=== PATIENT | female | born 1955 | race Caucasian/White ===

== ENCOUNTER 2019-11-09 10:58 | Emergency (ER) | payer MEDICARE, OTHER ==
--- NOTE | 2019-11-09 12:11 | CT ---
EXAM: CT brain without contrast HISTORY: Fall with head injury COMPARISON: None TECHNIQUE: Multiple contiguous axial images were obtained and a CT of the brain without contrast. FINDINGS: The brain is normal in morphology and attenuation without focal lesions or confluent areas of infarction. There is no evidence of hydrocephalus, intracranial hemorrhage, or extra-axial fluid collection. There is a small amount of soft tissue swelling in the left frontal scalp. The calvarium is unremarka ble. The visualized paranasal sinuses and mastoid air cells are well aerated. IMPRESSION: No evidence of acute intracranial abnormality
[2019-11-09] MEDS ORDERED: Acetaminophen 325 MG TAB ONE ×2 (12:54→12:55)
== END 2019-11-09 13:34 | disposition home or self-care (01) ==
LOC: ERS 10:58
DX: S00.03XA Contusion of scalp, initial encounter (principal); Z87.891 Personal history of nicotine dependence; W01.0XXA Fall on same level from slipping, tripping and stumbling without subsequent striking against object, initial encounter
CPT/HCPCS: 70450

== ENCOUNTER 2023-06-07 07:38 | Outpatient (CLI) | payer MEDICARE, OTHER ==
[2023-06-07] MEDS ORDERED: Iopamidol-370 76% 500 ML MDV (1 ML CHARGE) ONE (09:13)
== END 2023-06-07 07:39 | disposition home or self-care (01) ==
LOC: CT 07:38
PROVIDERS: ATTEND Radiology Radiation Oncology
DX: C06.2 Malignant neoplasm of retromolar area (principal)
CPT/HCPCS: 70470; 70491; Q9967

== ENCOUNTER 2023-06-09 11:45 | Outpatient (CLI) | payer MEDICARE, OTHER | END 2023-06-09 11:46 | disposition home or self-care (01) | LOC: PET 11:45 | PROVIDERS: ATTEND Radiology Radiation Oncology | DX: C06.2 Malignant neoplasm of retromolar area (principal) | CPT/HCPCS: 78815; A9552 ==

== ENCOUNTER 2023-07-03 07:03 | Inpatient (IN) | payer MEDICARE, OTHER ==
[2023-07-03] MEDS ORDERED: Sodium Chloride 0.9% 100 ML ONE (09:41)
[2023-07-03] MEDS ORDERED: CEFAZOLIN 2 GM VIAL ONE (09:41)
[2023-07-03] MEDS ORDERED: Lidocaine 1% PF 5 ML VIAL ONE (09:47)
[2023-07-03] MEDS ORDERED: PHENYLEPHRINE-NS 100 MCG/ML 10 ML SYRINGE ONE (09:47)
[2023-07-03] MEDS ORDERED: PROPOFOL 200 MG/20 ML VIAL ONE (09:47)
[2023-07-03 16:30] LABS: #Eosinphils 0.2 thou/uL (0.0-0.7); #Monocytes 0.7 thou/uL (0.11-0.59); #Neutrophils 6.4 thou/uL (1.40-6.50); %Basophils 0.3 % (0.0-1.0); %Eosinophils 1.8 % (0.0-10.0); %Monocytes 7.8 % (0.0-10.0); %Neutrophils 70.9 % (42.0-75.0); Hematocrit 32.6 % (36.0-47.0); Hemoglobin 10.4 g/dL (12.0-16.0); Mean Corpuscular HGB CONC 31.9 g/dL (32.0-36.0); Mean Corpuscular Hemoglobin 31.9 pg (27.0-31.0); Mean Platelet Volume 8.7 fL (7.4-10.4); Platelet Count 314 10x3/uL (130-400); RBC Distribution Width 12.7 % (11.5-14.5); Red Blood Cell (RBC) Count 3.26 mill/uL (4.20-5.40)
[2023-07-03 16:53] LABS: Phosphorus 3.2 mg/dL (2.3-4.7)
[2023-07-03 16:56] LABS: ALT (SGPT) 12 U/L (8-55); AST (SGOT) 19 U/L (5-34); Albumin 3.5 g/dL (3.4-4.8); Alkaline Phosphatase 59 U/L (40-110); Anion Gap 9 mmol/L (10-20); BUN (Urea Nitrogen) 7 mg/dL (9.8-20.1); Bilirubin, Total 0.3 mg/dL (0.2-1.2); Calc. Creatinine Clearance 59 mL/min (70-130); Calcium 8.9 mg/dL (7.8-10.44); Carbon Dioxide 26 mmol/L (23-31); Chloride 106 mmol/L (98-107); Estimated GFR 90; Globulin 2.2 g/dL (2.4-3.5); Glucose 83 mg/dL (80-115); Magnesium 1.4 mg/dL (1.6-2.6); Protein, Total 5.7 g/dL (5.8-8.1); Sodium 137 mmol/L (136-145)
[2023-07-03] MEDS: Carvedilol 6.25 MG TAB PO SCH (20:43)
[2023-07-03] MEDS: Melatonin 3 MG TAB PO SCH (20:43)
[2023-07-03] MEDS: tiZANidine HCl 4 MG TAB PO SCH (20:43)
[2023-07-03] MEDS: clonazePAM 0.5 MG TAB PO SCH (20:43)
[2023-07-04 06:50] LABS: #Eosinphils 0.1 thou/uL (0.0-0.7); #Monocytes 0.5 thou/uL (0.11-0.59); #Neutrophils 3.9 thou/uL (1.40-6.50); %Basophils 0.5 % (0.0-1.0); %Eosinophils 2.3 % (0.0-10.0); %Lymphocytes 21.2 % (21.0-51.0); %Monocytes 8.1 % (0.0-10.0); %Neutrophils 67.7 % (42.0-75.0); Hematocrit 32.2 % (36.0-47.0); Hemoglobin 10.3 g/dL (12.0-16.0); Mean Corpuscular Hemoglobin 31.7 pg (27.0-31.0); Mean Corpuscular Volume 99.1 fl (78.0-98.0); Mean Platelet Volume 8.8 fL (7.4-10.4); Platelet Count 299 10x3/uL (130-400); RBC Distribution Width 12.6 % (11.5-14.5); Red Blood Cell (RBC) Count 3.25 mill/uL (4.20-5.40); White Blood Cell (WBC) Count 5.7 10x3/uL (4.8-10.8)
[2023-07-04 07:19] LABS: ALT (SGPT) 11 U/L (8-55); AST (SGOT) 17 U/L (5-34); Albumin 3.5 g/dL (3.4-4.8); Alkaline Phosphatase 57 U/L (40-110); Anion Gap 12 mmol/L (10-20); BUN (Urea Nitrogen) 6 mg/dL (9.8-20.1); Bilirubin, Direct 0.2 mg/dL (0.1-0.3); Bilirubin, Total 0.3 mg/dL (0.2-1.2); Calc. Creatinine Clearance 62 mL/min (70-130); Calcium 8.9 mg/dL (7.8-10.44); Carbon Dioxide 23 mmol/L (23-31); Cardiac Risk 2.3 (Less than 4.5); Chloride 104 mmol/L (98-107); Cholesterol 124 mg/dl (< 200 Desired); Estimated GFR 94; Glucose 94 mg/dL (80-115); HDL Cholesterol 55 mg/dL (>60 Neg Risk); LDL Cholesterol, Calculated 50 mg/dL; Magnesium 1.4 mg/dL (1.6-2.6); Phosphorus 3.5 mg/dL (2.3-4.7); Potassium 3.9 mmol/L (3.5-5.1); Protein, Total 5.7 g/dL (5.8-8.1); Sodium 135 mmol/L (136-145); Triglycerides 96 mg/dL (Less than 150)
[2023-07-04 07:50] VITALS: BMI 18.2
[2023-07-04] MEDS: Cholecalciferol 1,000 UNITS (25 MCG) TAB PO SCH (09:15)
[2023-07-04] MEDS: Carvedilol 6.25 MG TAB PO SCH ×2 (09:15→20:57)
[2023-07-04] MEDS: clonazePAM 0.5 MG TAB PO SCH ×2 (09:15→20:57)
[2023-07-04] MEDS: Escitalopram Oxalate 10 mg Tablet PO SCH (09:15)
[2023-07-04] MEDS: Chlorhexidine Gluconate 15 ML UDCUP SSP SCH ×2 (09:16→20:57)
[2023-07-04] MEDS: Magnesium Oxide 400 MG TAB PO SCH (09:16)
[2023-07-04] MEDS: Folic Acid 1 MG TAB PO SCH (09:16)
[2023-07-04] MEDS: Bupropion 150 MG XL TAB PO SCH (10:17)
[2023-07-04] MEDS ORDERED: Lidocaine 1% (PF) 30 ML VIAL ONE (10:20)
[2023-07-04] MEDS ORDERED: EPINEPHrine 1 MG/ML AMP ONE (10:20)
[2023-07-04] MEDS ORDERED: Bupivacaine PF 0.5% 30 ML VIAL ONE (10:20)
[2023-07-04] MEDS ORDERED: fentaNYL PF 100 MCG/2 ML SYRINGE ONE (11:55)
[2023-07-04] MEDS ORDERED: HYDROmorphone 0.5 MG/0.5 ML SYRINGE ONE (11:55)
[2023-07-04] MEDS ORDERED: SUGAMMADEX SODIUM 200 MG/2 ML VIAL ONE (11:55)
[2023-07-04] MEDS ORDERED: Dexamethasone 20 MG/5 ML VIAL ONE (12:23)
[2023-07-04] MEDS ORDERED: Rocuronium Bromide 10 MG/ML (10ML VIAL) ONE (12:23)
[2023-07-04] MEDS ORDERED: PHENYLEPHRINE-NS 100 MCG/ML 10 ML SYRINGE ONE (12:23)
[2023-07-04] MEDS ORDERED: Ketorolac Tromethamine 30 MG/ML VIAL ONE (12:23)
[2023-07-04] MEDS ORDERED: Lidocaine 1% PF 5 ML VIAL ONE (12:23)
[2023-07-04] MEDS ORDERED: PROPOFOL 200 MG/20 ML VIAL ONE (12:23)
[2023-07-04] MEDS ORDERED: Glycopyrrolate 0.2 MG/ML 5 ML SYRINGE ONE (12:23)
[2023-07-04] MEDS ORDERED: ePHEDrine Sulfate 50 MG/10 ML VIAL ONE (12:23)
[2023-07-04] MEDS ORDERED: Ondansetron PF 4 MG/2 ML Vial ONE (12:23)
[2023-07-04] MEDS ORDERED: cefOXitin 2 GM VIAL ONE (12:57)
[2023-07-04] MEDS ORDERED: Magnesium Sulfate In Water 4 GM in Premix Bag 1 BAG IVPB SCH (13:15)
[2023-07-04] MEDS ORDERED: Promethazine HCl 25 MG/ML VIAL IM PRN (14:44)
[2023-07-04] MEDS ORDERED: Ondansetron HCl/PF 4 MG/2 ML Vial IVP PRN (14:44)
[2023-07-04] MEDS ORDERED: fentaNYL 50 mcg/mL 1 mL Vial ONE ×2 (15:33→15:41)
[2023-07-04] MEDS: tiZANidine HCl 4 MG TAB PO SCH (20:57)
[2023-07-04] MEDS: Melatonin 3 MG TAB PO SCH (20:58)
[2023-07-05] MEDS: Acetaminophen 500 MG TAB PO PRN ×2 (01:46→11:12)
[2023-07-05 07:39] LABS: #Monocytes 0.8 thou/uL (0.11-0.59); #Neutrophils 10.1 thou/uL (1.40-6.50); %Basophils 0.2 % (0.0-1.0); %Eosinophils 0.2 % (0.0-10.0); %Lymphocytes 13.9 % (21.0-51.0); %Monocytes 6.3 % (0.0-10.0); Hematocrit 33.6 % (36.0-47.0); Hemoglobin 10.7 g/dL (12.0-16.0); Mean Corpuscular HGB CONC 31.8 g/dL (32.0-36.0); Mean Corpuscular Volume 100.6 fl (78.0-98.0); Mean Platelet Volume 8.8 fL (7.4-10.4); Platelet Count 348 10x3/uL (130-400); RBC Distribution Width 12.5 % (11.5-14.5); Red Blood Cell (RBC) Count 3.34 mill/uL (4.20-5.40); White Blood Cell (WBC) Count 12.8 10x3/uL (4.8-10.8)
[2023-07-05 07:53] VITALS: TEMP 98.3
[2023-07-05 08:06] LABS: Anion Gap 10 mmol/L (10-20); BUN (Urea Nitrogen) 12 mg/dL (9.8-20.1); Calc. Creatinine Clearance 52 mL/min (70-130); Calcium 8.6 mg/dL (7.8-10.44); Carbon Dioxide 24 mmol/L (23-31); Chloride 101 mmol/L (98-107); Estimated GFR 77; Glucose 117 mg/dL (80-115); Magnesium 2.1 mg/dL (1.6-2.6); Phosphorus 4.1 mg/dL (2.3-4.7); Potassium 4.1 mmol/L (3.5-5.1); Sodium 131 mmol/L (136-145)
[2023-07-05] MEDS: Cholecalciferol 1,000 UNITS (25 MCG) TAB PO SCH (08:25)
[2023-07-05] MEDS: Bupropion 150 MG XL TAB PO SCH (08:25)
[2023-07-05] MEDS: Carvedilol 6.25 MG TAB PO SCH (08:26)
[2023-07-05] MEDS: Escitalopram Oxalate 10 mg Tablet PO SCH (08:26)
[2023-07-05] MEDS: Magnesium Oxide 400 MG TAB PO SCH (08:27)
[2023-07-05] MEDS: clonazePAM 0.5 MG TAB PO SCH (08:27)
[2023-07-05] MEDS: Folic Acid 1 MG TAB PO SCH (08:27)
[2023-07-05] MEDS: Chlorhexidine Gluconate 15 ML UDCUP SSP SCH (08:28)
[2023-07-05 08:35] VITALS: BP 124/74
== END 2023-07-05 13:35 | disposition home or self-care (01) | DRG 328 ==
LOC: SDC 07:03 → T4-A 08:17 → OBSVTOIN 07-05 10:20
PROVIDERS: ADMIT Family Medicine; ATTEND Family Medicine
PROC: 0DJ08ZZ Inspection of Upper Intestinal Tract, Via Natural or Artificial Opening Endoscopic (ICD-10-PCS; 2023-07-03)
PROC: 0BQT3ZZ Repair Diaphragm, Percutaneous Approach (ICD-10-PCS; principal; 2023-07-04)
PROC: 8E0W3CZ Robotic Assisted Procedure of Trunk Region, Percutaneous Approach (ICD-10-PCS; 2023-07-04)
PROC: 0DH64UZ Insertion of Feeding Device into Stomach, Percutaneous Endoscopic Approach (ICD-10-PCS; 2023-07-04)
PROC: 3E033XZ Introduction of Vasopressor into Peripheral Vein, Percutaneous Approach (ICD-10-PCS; 2023-07-04)
DX: K44.9 Diaphragmatic hernia without obstruction or gangrene (principal); D02.3 Carcinoma in situ of other parts of respiratory system; D00.08 Carcinoma in situ of pharynx; E87.5 Hyperkalemia; R13.10 Dysphagia, unspecified; Z88.5 Allergy status to narcotic agent; Z90.11 Acquired absence of right breast and nipple; Z98.890 Other specified postprocedural states; Z93.1 Gastrostomy status
CPT/HCPCS: 36415; 77014; 77333; 77334; 80048; 80053; 80061; 80076; 83735; 84100; 85025; 86850; 86900; 86901; 93005; 93010; 97139; J0171; J0694; J1100; J1170; J1650; J1885; J2001; J2405; J2704; J3010; J3475; J3490; S0020

== ENCOUNTER 2023-08-30 08:59 | Day surgery (SDC) | payer MEDICARE, OTHER ==
[2023-08-30] MEDS ORDERED: Acetaminophen 500 MG TAB ONE (10:09)
[2023-08-30] MEDS ORDERED: Acetaminophen 500 MG TAB PO SCH (10:15)
[2023-08-30] MEDS ORDERED: diphenhydrAMINE 25 MG CAP PO SCH (10:15)
[2023-08-30 13:34] VITALS: TEMP 98.1
[2023-08-30] MEDS ORDERED: FLU VACC QS2023(65UP)/MF59C/PF 60 MCG/0.5 ML SYRINGE IM ONE (14:00)
[2023-08-30 15:07] VITALS: BP 124/58
== END 2023-08-30 15:01 | disposition home or self-care (01) ==
LOC: ONC/OP 08:59
PROVIDERS: ATTEND Internal Medicine Hematology & Oncology
DX: D64.9 Anemia, unspecified (principal); D69.6 Thrombocytopenia, unspecified
CPT/HCPCS: 36430; 86850; 86900; 86901; 86920; P9016; J1642

== ENCOUNTER 2023-09-15 15:16 | Emergency (ER) | payer MEDICARE, OTHER ==
[2023-09-15 16:26] LABS: #Monocytes 0.9 thou/uL (0.11-0.59); #Neutrophils 5.3 thou/uL (1.40-6.50); %Basophils 0.2 % (0.0-1.0); %Eosinophils 0.2 % (0.0-10.0); %Lymphocytes 6.6 % (21.0-51.0); %Monocytes 13.3 % (0.0-10.0); %Neutrophils 79.1 % (42.0-75.0); Hemoglobin 9.5 g/dL (12.0-16.0); Mean Corpuscular HGB CONC 32.8 g/dL (32.0-36.0); Mean Corpuscular Volume 94.8 fl (78.0-98.0); Mean Platelet Volume 8.3 fL (7.4-10.4); Platelet Count 427 10x3/uL (130-400); Red Blood Cell (RBC) Count 3.06 mill/uL (4.20-5.40); White Blood Cell (WBC) Count 6.6 10x3/uL (4.8-10.8)
[2023-09-15 16:53] LABS: ALT (SGPT) 7 U/L (8-55); AST (SGOT) 20 U/L (5-34); Albumin 3.5 g/dL (3.4-4.8); Alkaline Phosphatase 54 U/L (40-110); Anion Gap 12 mmol/L (10-20); BUN (Urea Nitrogen) 13 mg/dL (9.8-20.1); Bilirubin, Total Less than 0.2 mg/dL (0.2-1.2); Calc. Creatinine Clearance 0 mL/min (70-130); Calcium 8.6 mg/dL (7.8-10.44); Carbon Dioxide 23 mmol/L (23-31); Chloride 101 mmol/L (98-107); Estimated GFR 88; Globulin 2.2 g/dL (2.4-3.5); Glucose 110 mg/dL (80-115); Potassium 4.1 mmol/L (3.5-5.1); Protein, Total 5.7 g/dL (5.8-8.1); Sodium 132 mmol/L (136-145)
[2023-09-15] MEDS ORDERED: Bacitracin 1 PK ONE (17:15)
== END 2023-09-15 18:25 | disposition home or self-care (01) ==
LOC: ERS 15:16
DX: K94.23 Gastrostomy malfunction (principal); L30.9 Dermatitis, unspecified; I10 Essential (primary) hypertension; E78.5 Hyperlipidemia, unspecified; Z87.891 Personal history of nicotine dependence; Z79.899 Other long term (current) drug therapy; C10.8 Malignant neoplasm of overlapping sites of oropharynx
CPT/HCPCS: 80053; 83735; 84443; 85025; 99283

== ENCOUNTER → 2023-11-24 | Outpatient (CLI) | payer MEDICARE, OTHER | LOC: PET 08:00 | PROVIDERS: ATTEND Radiology Radiation Oncology | DX: C05.1 Malignant neoplasm of soft palate (principal) | CPT/HCPCS: 78815; A9552 ==